=== PATIENT | female | born 1950 | race African-American/Black ===

== ENCOUNTER 2018-02-10 10:01 | Inpatient (IN) | payer OTHER ==
[2018-02-10] VITALS (44 sets, daily range): BP systolic -1–109; BP diastolic -1–79
[~2018-02-10] VITALS: Ht 162.6 cm; Wt 56.7 kg
[2018-02-10] MEDS ORDERED: SUCCINYLCHOLINE CHLORIDE 200MG/10ML VIAL IV ONE (10:58)
[2018-02-10] MEDS ORDERED: ETOMIDATE 2MG/ML 10ML VIAL IV ONE (10:58)
[2018-02-10 11:11] LABS: BG BASE EXCESS -5.7 mmol/L (-2.0-2.0); BG CARBOXYHEMOGLOBIN 0.2 % (0.5-1.5); BG DEOXYHEMOGLOBIN 0.5 % (0.0-5.0); BG METHEMOGLOBIN 0.6 % (0.0-1.5); BG OXYGEN SATURATION 99.5 % (92.0-98.5); BG OXYHEMOGLOBIN 98.7 % (94.0-97.0); BG PCO2 21.5 mmHg (35.0-45.0); BG PH 7.462 (7.350-7.450); BG PO2 224.6 mmHg (75.0-100.0); BG SAMPLE SITE RIGHT RADIAL; BG TOTAL HEMOGLOBIN 18.5 g/dL (12.0-18.0); BG VENT MODE AMBU BAG
[2018-02-10] MEDS ORDERED: MIDAZOLAM HCL 50 MG in DEXTROSE 5% WATER 40 ML IV ONE (11:15)
[2018-02-10] MEDS ORDERED: IOHEXOL-350 100 ML BOTTLE ONE (11:23)
[2018-02-10 11:33] LABS: HEMATOCRIT. 53.1 % (36.0-48.0); HEMOGLOBIN. 17.4 g/dL (12.0-16.0); MEAN CORPUSCULAR HEMOGLOBIN 28.2 pg (28.0-32.0); MEAN CORPUSCULAR VOLUME 85.9 fL (81.0-99.0); RED BLOOD CELL COUNT 6.18 mill/uL (4.2-5.4); RED CELL DISTRIBUTION WIDTH 20.3 % (11.6-14.6)
[2018-02-10 11:35] LABS: INR 1.3; PROTHROMBIN TIME 13.1 sec (9.4-11.6)
[2018-02-10] MEDS ORDERED: DEXAMETHASONE 4MG/ML 1ML VIAL IV ONE (12:00)
[2018-02-10] MEDS ORDERED: MORPHINE SULFATE 4 MG/ML CPJ (NOT FOR IM USE) IV ONE ×2 (12:15→12:20)
[2018-02-10 12:32] LABS: KETONES URINE 3+ (NEGATIVE); LEUKOCYTE ESTERASE URINE 3+ (NEGATIVE); NITRITE URINE NEGATIVE (NEGATIVE); OCCULT BLOOD URINE 2+ (NEGATIVE); PROTEIN URINE 2+ (NEGATIVE); SPECIFIC GRAVITY URINE 1.016 (1.005-1.030); UROBILINOGEN URINE 0.2 E.U./dL (0.2-1.0)
[2018-02-10 12:35] LABS: CLARITY URINE TURBID (CLEAR); COLOR URINE YELLOW (YELLOW)
[2018-02-10 12:38] LABS: PLATELET ESTIMATE NORMAL
[2018-02-10 12:40] LABS: PLATELET 268 x1000/uL (130-400)
[2018-02-10] MEDS ORDERED: MORPHINE SULFATE 4 MG/ML CPJ (NOT FOR IM USE) IV PRN (12:45)
[2018-02-10] MEDS ORDERED: DEXT 5%/LACTATED RINGERS 1,000 ML IV SCH (12:45)
[2018-02-10 12:57] LABS: *AMPHETAMINES SCREEN URINE NEGATIVE (NEGATIVE); *BARBITURATES SCREEN URINE NEGATIVE (NEGATIVE); *BENZODIAZEPINES SCREEN URINE NEGATIVE (NEGATIVE); *COCAINE SCREEN URINE NEGATIVE (NEGATIVE); METHADONE URINE SCREEN NEGATIVE (NEGATIVE); OPIATES URINE SCREEN NEGATIVE (NEGATIVE)
[2018-02-10 12:58] LABS: CANNABINOID URINE SCREEN NEGATIVE (NEGATIVE); PHENCYCLIDINE URINE SCREEN NEGATIVE (NEGATIVE)
[2018-02-10] MEDS ORDERED: DEXT 5%/0.45% NACL 1000ML 1,000 ML IV SCH (13:53)
[2018-02-10] MEDS ORDERED: LORAZEPAM 2MG/ML CPJ IV PRN (14:00)
[2018-02-10] MEDS ORDERED: MORPHINE SULFATE 2 MG/ML CPJ (NOT FOR IM USE) IV PRN (14:00)
[2018-02-10] MEDS ORDERED: IPRATROPIUM/ALBUTEROL 0.5-3(2.5)MG/3ML NEB INH PRN (14:00)
[2018-02-10] MEDS ORDERED: CEFAZOLIN 1000MG PREMIX 50 ML IV SCH (14:00)
[2018-02-10] MEDS ORDERED: ONDANSETRON HCL 4MG/2ML VIAL IV PRN (14:00)
[2018-02-10] MEDS ORDERED: CLONIDINE 0.1MG TABLET PO PRN (14:00)
[2018-02-10] MEDS ORDERED: DIPHENHYDRAMINE 50MG/ML VIAL IV PRN (14:00)
[2018-02-10] MEDS ORDERED: GUAIFENESIN 200MG/10ML SUGAR FREE UDC PO PRN (14:00)
[2018-02-10] MEDS ORDERED: ACETAMINOPHEN 325MG TABLET PO PRN (14:00)
[2018-02-10] MEDS ORDERED: MAGNESIUM/ALUMINUM HYDROXIDE/SIMETHICONE 30ML UDC PO PRN (14:00)
[2018-02-10] MEDS ORDERED: HYDROCODONE/ACETAMINOPHEN 5/325MG TABLET PO PRN (14:00)
[2018-02-10] MEDS ORDERED: NA PHOS,M-B/NA PHOS,DI-BA ENEMA 118ML PR PRN (14:00)
[2018-02-10] MEDS ORDERED: DOCUSATE SODIUM 100MG CAPSULE PO PRN (14:00)
[2018-02-10] MEDS ORDERED: SODIUM CHLORIDE 0.9% 250 ML IV ONE (14:15)
[2018-02-10 14:43] LABS: BG BASE EXCESS -4.8 mmol/L (-2.0-2.0); BG CARBOXYHEMOGLOBIN 0.2 % (0.5-1.5); BG DEOXYHEMOGLOBIN 0.2 % (0.0-5.0); BG HCO3 ACT 15.7 mmol/L (22.0-26.0); BG METHEMOGLOBIN 0.6 % (0.0-1.5); BG OXYGEN SATURATION 99.8 % (92.0-98.5); BG PCO2 21.5 mmHg (35.0-45.0); BG PH 7.481 (7.350-7.450); BG PO2 312.8 mmHg (75.0-100.0); BG SAMPLE SITE RIGHT BRACHIAL; BG TIDAL VOLUME(mL) 500 mL; BG TOTAL HEMOGLOBIN 18.2 g/dL (12.0-18.0); BG VENT MODE VENT - A/C; BG VENT RATE 14 set
[2018-02-10] MEDS: PHENYTOIN SODIUM 100MG/2ML VIAL IV SCH ×2 (15:24→21:25)
[2018-02-10 16:05] LABS: CHLORIDE 108 mEq/L (98-107)
[2018-02-10 16:09] LABS: ETHANOL BLOOD < 10 mg/dL
[2018-02-10 16:11] LABS: AMMONIA 82 uMol/L (<32)
[2018-02-10 16:12] LABS: LDL CHOLESTEROL 113 mg/dL (5-100)
[2018-02-10 16:15] LABS: HDL CHOLESTEROL 87 mg/dL (40-59)
[2018-02-10 16:29] LABS: HEPATITIS B SURFACE ANTIGEN NEGATIVE
[2018-02-10 16:57] LABS: HEPATITIS B CORE AB IGM NEGATIVE
[2018-02-10 16:59] LABS: HEPATITIS A AB IGM NEGATIVE (NEGATIVE)
[2018-02-10] MEDS ORDERED: MAGNESIUM 2 G PREMIX 50 ML IV NR (17:30)
[2018-02-10] MEDS ORDERED: SODIUM CHLORIDE 0.9% 500 ML IV ONE (18:15)
[2018-02-10] MEDS ORDERED: LEVOFLOXACIN 500MG PREMIX 100 ML IV NR (19:00)
[2018-02-10] MEDS: PIPERACILLIN/TAZ 2.25G PREMIX 50 ML IV SCH (19:42)
[2018-02-10] MEDS ORDERED: IPRATROPIUM/ALBUTEROL 0.5-3(2.5)MG/3ML NEB HHN PRN (20:00)
[2018-02-10] MEDS: NOREPINEPHRINE 4 MG in SODIUM CHLORIDE 0.9% 246 ML IV PRN (20:57)
[2018-02-10 23:29] LABS: CREATINE KINASE MB FRACTION 17.3 ng/mL (0.5-3.6)
[2018-02-11] VITALS (56 sets, daily range): BP systolic -2–177; BP diastolic -2–111
[2018-02-11] MEDS: IPRATROPIUM/ALBUTEROL 0.5-3(2.5)MG/3ML NEB HHN SCH ×3 (00:48→13:35)
[2018-02-11] MEDS: PIPERACILLIN/TAZ 2.25G PREMIX 50 ML IV SCH (01:50)
[2018-02-11] MEDS ORDERED: AMIODARONE HCL 900 MG in DEXT 5% WATER 482 ML IV PRN (03:00)
[2018-02-11 03:08] LABS: BG BASE EXCESS -12.5 mmol/L (-2.0-2.0); BG CARBOXYHEMOGLOBIN 0.7 % (0.5-1.5); BG DEOXYHEMOGLOBIN 16.4 % (0.0-5.0); BG FRACTION INSPIRED OXYGEN 75; BG HCO3 ACT 14.5 mmol/L (22.0-26.0); BG METHEMOGLOBIN 0.6 % (0.0-1.5); BG OXYGEN SATURATION 83.4 % (92.0-98.5); BG OXYHEMOGLOBIN 82.3 % (94.0-97.0); BG PCO2 37.1 mmHg (35.0-45.0); BG PO2 60.1 mmHg (75.0-100.0); BG SAMPLE SITE RIGHT FEMORAL; BG TIDAL VOLUME(mL) 500 mL; BG VENT MODE VENT - A/C; BG VENT RATE 14 set
[2018-02-11] MEDS: NOREPINEPHRINE 4 MG in SODIUM CHLORIDE 0.9% 246 ML IV PRN (03:12)
[2018-02-11] MEDS ORDERED: NOREPINEPHRINE 32 MG in SODIUM CHLORIDE 0.9% 468 ML IV PRN (03:30)
[2018-02-11] MEDS ORDERED: SODIUM BICARBONATE 8.4% 1 MEQ/ML 50ML SYR IV NR (04:45)
[2018-02-11] MEDS: PHENYTOIN SODIUM 100MG/2ML VIAL IV SCH (05:02)
[2018-02-11] MEDS ORDERED: SODIUM BICARBONATE IV SCH ×3 (05:30)
[2018-02-11] MEDS ORDERED: LACTATED RINGERS IV SCH ×3 (05:30)
[2018-02-11] MEDS ORDERED: DEXT IV SCH ×3 (05:30)
[2018-02-11] MEDS ORDERED: PANTOPRAZOLE SODIUM 40 MG/VIAL IV SCH (09:00)
[2018-02-11] MEDS ORDERED: PNEUMOCOCCAL 23-VAL P-SAC VAC 0.5 ML IM ONE (10:00)
[2018-02-11] MEDS ORDERED: EPINEPHRINE 0.1MG/ML (1:10,000) 10ML SYR ONE ×2 (15:23→15:24)
[2018-02-11] MEDS ORDERED: CALCIUM CHLORIDE 1GM/10ML SYR IV ONE (15:24)
[2018-02-11] MEDS ORDERED: AMIODARONE HCL 50MG/ML 3ML VIAL IV ONE (15:24)
[2018-02-11] MEDS ORDERED: LEVOFLOXACIN 250MG PREMIX 50 ML IV SCH (18:00)
[2018-02-14 04:14] LABS: BARBITURATE SCREEN Negative ug/mL (Cutoff:0.1); BENZODIAZEPINE SCREEN Negative ng/mL (Cutoff:20); OPIATES SCREEN Negative ng/mL (Cutoff:5); PHENCYCLIDINE SCREEN Negative ng/mL (Cutoff:8)
== END 2018-02-11 15:32 | disposition expired | DRG 853 ==
LOC: ER 10:26 → EDBEDREQSVC 10:53 → EDBEDREQ 10:53 → MICUSO 11:44 → EDBEDREQ 11:47 → ENRESERV 11:51
PROVIDERS: ADMIT Internal Medicine; ATTEND Internal Medicine
PROC: 0BH17EZ Insertion of Endotracheal Airway into Trachea, Via Natural or Artificial Opening (ICD-10-PCS; principal; 2018-02-10)
PROC: 009600Z Drainage of Cerebral Ventricle with Drainage Device, Open Approach (ICD-10-PCS; 2018-02-10)
PROC: 5A1935Z Respiratory Ventilation, Less than 24 Consecutive Hours (ICD-10-PCS; 2018-02-10)
DX: A41.9 Sepsis, unspecified organism (principal); I61.5 Nontraumatic intracerebral hemorrhage, intraventricular; I21.4 Non-ST elevation (NSTEMI) myocardial infarction; I46.9 Cardiac arrest, cause unspecified; I60.9 Nontraumatic subarachnoid hemorrhage, unspecified; J96.00 Acute respiratory failure, unspecified whether with hypoxia or hypercapnia; J18.9 Pneumonia, unspecified organism; E86.0 Dehydration; G93.41 Metabolic encephalopathy; G91.9 Hydrocephalus, unspecified; N39.0 Urinary tract infection, site not specified; E11.9 Type 2 diabetes mellitus without complications; I10 Essential (primary) hypertension; R40.2430 Glasgow coma scale score 3-8, unspecified time; Z66 Do not resuscitate
CPT/HCPCS: 36415; 36600; 70450; 70496; 71045; 71250; 80053; 80305; 80307; 81003; 82140; 82375; 82465; 82550; 82553; 82805; 82962; 83036; 83605; 83718; 83721; 83735; 84484; 85025; 85610; 85651; 86705; 86709; 86803; 87040; 87070; 87086; 87340; 90732; 93005; 93970; 99291; G0482; J0282; J0330; J0690; J1165; J1956; J2250; J2270; J2543; J3475; J3490; J7040; J7050; J7060; J7121; J7620; Q9967; A4315